=== PATIENT | female | born 1990 | race Caucasian/White ===

== ENCOUNTER 2019-01-16 13:10 | Emergency (ER) | payer OTHER ==
[~2019-01-16] VITALS: Wt 77.0 kg
[2019-01-16 13:19] VITALS: BP 130/78; PULSE 78; RESP 18
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
== END 2019-01-16 13:26 | disposition home or self-care (01) ==
LOC: E/R 13:10
DX: S09.90XA Unspecified injury of head, initial encounter (principal); R40.2412 Glasgow coma scale score 13-15, at arrival to emergency department; W50.0XXA Accidental hit or strike by another person, initial encounter; Y92.89 Other specified places as the place of occurrence of the external cause
CPT/HCPCS: 99282